=== PATIENT | female | born 1965 | race Caucasian/White ===

== ENCOUNTER 2018-12-15 07:53 | Inpatient (IN) | payer MEDICAID, OTHER ==
[~2018-12-15] VITALS: Ht 160 cm; Wt 103.5 kg
[2018-12-15] MEDS ORDERED: SODIUM CHLORIDE 0.9% 1L BAG IV* STA (07:57)
[2018-12-15] MEDS ORDERED: CEFTRIAXONE 1 GM/50 ML (PMX) 50 ML IVPB ONE (08:00)
[2018-12-15] MEDS ORDERED: LORAZEPAM 0.5 MG TAB PO ONE (08:00)
[2018-12-15] MEDS ORDERED: IBUPROFEN 600 MG TAB PO ONE (08:00)
--- NOTE | 2018-12-15 08:15 | ERD ---
ER Documentation Chief Complaint Chief Complaint C/O HAND PAIN BUT ALSO SOB, FEBRILE, HYPERTENSIVE HPI 53-year-old woman brought in by EMS from home for anxiety, tactile fever, shortness of breath, and hypertension. Patient states she has been having multiple arguments with her boyfriend, and states she has been feeling very anxious for the last 3 days and his morning she developed carpal spasms. She states she has had a fever for 3 days and admits to mild cough but denies abdominal pain. Patient denies vomiting or diarrhea, no blood per rectum or melena. She drinks alcohol daily and admits to being a mild alcoholic but s tates she has not drank alcohol for the last 3 days. Patient denies history of drug abuse, no suicidal homicidal ideation, no complaints of chest pain. Patient transported here by EMS tachypnea, anxious, febrile. ROS All systems reviewed and are negative except as per history of present illness. Allergies Allergies: Coded Allergies: No Known Allergy (Unverified , 12/15/18) PMhx/Soc Obesity, alcoholism FmHx Family History: No diabetes Physical Exam Vitals Vital Signs Date Temp Pulse Resp B/P (MAP) Pulse Ox O2 O2 Flow FiO2 Time Delivery Rate 12/15/18 101.0 109 28 178/83 97 Nasal 08:45 (114) Cannula 12/15/18 101.0 08:34 12/15/18 2.0 08:00 12/15/18 101.2 114 24 181/90 92 07:55 (120) Physical Exam GENERAL: Well-developed, well-nourished, appears dehydrated, febrile, anxious HEENT: Dry mucous membranes, pink conjunctiva, no cervical spine tenderness or step-off deformities, no goiter, no jaundice or icterus, extraocular movements intact without pain. NEURO: Alert and oriented 3, cranial nerves II through XII intact bilaterally, pupils equal round reactive to light CARDIAC: Tachycardic and regular, no murmurs rubs or gallops LUNGS: Clear bilaterally no wheezing crackles or stridor ABDOMEN: Soft distended, protuberant abdomen, no rigidity, nontender SKIN: Warm and dry to touch, no abrasions, contusions, or hematomas, no lacerations, no ecchymosis, no target lesions, and without ulcers EXTREMITIES: No clubbing cyanosis, 2+ pitting edema in the lower extremities bilaterally, calves are bilaterally symmetrical, no Homans sign, no popliteal cord sign. Distal pulses equal and bilateral PSYCH: Anxious with carpal spasms bilaterally Result Diagram: 12/15/18 0810 12/15/18 0810 Results 24 hrs Laboratory Tests Test 12/15/18 08:03 12/15/18 08:10 12/15/18 08:55 POC Venous Lactate 2.9 mmol/L White Blood Count 8.0 10^3/ul Red Blood Count 4.26 10^6/ul Hemoglobin 10.2 g/dl Hematocrit 34.7 % Mean Corpuscular Volume 81.5 fl Mean Corpuscular Hemoglobin 23.9 pg Mean Corpuscular 29.4 g/dl Hemoglobin Concent Red Cell Distribution Width 16.8 % Platelet Count 65 10^3/UL Mean Platelet Volume 12.4 fl Immature Granulocytes % 0.500 % Neutrophils % 81.5 % Lymphocytes % 10.3 % Monocytes % 7.3 % Eosinophils % 0.1 % Basophils % 0.3 % Nucleated Red Blood Cells % 0.3 /100WBC Immature Granulocytes # 0.040 10^3/ul Neutrophils # 6.5 10^3/ul Lymphocytes # 0.8 10^3/ul Monocytes # 0.6 10^3/ul Eosinophils # 0.0 10^3/ul Basophils # 0.0 10^3/ul Nucleated Red Blood Cells # 0.0 10^3/ul Prothrombin Time 18.6 Sec Prothrombin Time Ratio 1.5 INR International 1.54 Normalized Ratio Activated Partial Thromboplast 33.7 Sec Time Sodium Level 140 mmol/L Potassium Level 2.4 mmol/L Chloride Level 95 mmol/L Carbon Dioxide Level 34 mmol/L Anion Gap 11 Blood Urea Nitrogen 11 mg/dl Creatinine 0.90 mg/dl Est Glomerular Filtrat > 60 mL/min Rate mL/min Glucose Level 116 mg/dl Calcium Level 7.3 mg/dl Total Bilirubin 1.1 mg/dl Direct Bilirubin 0.00 mg/dl Indirect Bilirubin 1.1 mg/dl Aspartate Amino 73 IU/L Transf (AST/SGOT) Alanine 56 IU/L Aminotransferase (ALT/SGPT) Alkaline Phosphatase 73 IU/L Troponin I 0.138 ng/ml C-Reactive Protein 2.5 mg/dl Total Protein 7.6 g/dl Albumin 3.2 g/dl Globulin 4.40 g/dl Albumin/Globulin Ratio 0.72 Lipase 149 U/L Urine Color PEDRO Urine Clarity CLOUDY Urine pH 7.0 Urine Specific [place] 1.012 Urine Ketones NEGATIVE mg/dL Urine Nitrite POSITIVE mg/dL Urine Bilirubin NEGATIVE mg/dL Urine Urobilinogen NEGATIVE mg/dL Urine Leukocyte Esterase 3+ Enrique/ul Urine Microscopic RBC 3 /HPF Urine Microscopic WBC > 182 /HPF Urine Squamous Epithelial Cells FEW /HPF Urine Bacteria FEW /HPF Urine Hemoglobin 2+ mg/dL Urine Glucose NEGATIVE mg/dL Urine Total Protein 1+ mg/dl Current Medications Medications Dose Sig/Darryl Start Time Status Last (Trade) Ordered Route PRN Stop Time Admin Dose Reason Admin Sodium 3,000 ml BOLUS OVER 2 12/15/18 DC 12/15/18 Chloride HOURS STAT 07:57 08:35 (NS) IV* 12/15/18 08:01 Ceftriaxone 50 ml @ ONCE ONCE 12/15/18 DC 12/15/18 Sodium 100 mls/hr IVPB 08:00 08:34 12/15/18 08:29 Ibuprofen 600 mg ONCE ONCE 12/15/18 DC 12/15/18 (Motrin) PO 08:00 08:34 12/15/18 08:01 Lorazepam 1 mg ONCE ONCE 12/15/18 DC 12/15/18 (Ativan) PO 08:00 08:34 12/15/18 08:01 Furosemide 40 mg ONCE ONCE 12/15/18 DC (Lasix) IV 09:00 12/15/18 09:01 Magnesium 50 ml @ 25 ONCE ONCE 12/15/18 Sulfate mls/hr IVPB 09:30 12/15/18 11:29 Potassium 260 ml @ ONCE ONCE 12/15/18 Phosphate 30 65 mls/hr IVPB 09:30 mm/ Sodium 12/15/18 13:29 Chloride Procedures/MDM IV line was established patient was placed on clinical research monitor rhythm strip revealed a sinus tachycardia at 100 bpm with upright P and T waves. Patient was febrile, blood and urine cultures have been ordered results are pending I will follow-up. EKG performed, read by me revealed sinus tachycardia at 106 bpm, normal axis, narrow QRS complex, no concerning ST elevations or depressions noted I administered 3 L normal saline IV for I administered 3 L normal saline IV, ibuprofen 600 mg p.o. for fever, lorazepam 1 mg p.o. for anxiety, ceftriaxone 1 g IV One AP view of the chest performed, read by me reveals cardiomegaly and congestion bilaterally, no acute infiltrates, no pneumothorax. CT scan of the abdomen and pelvis was performed, IMPRESSION: 1. Mild ascites. 2. Cirrhotic liver with recanalization of the umbilical vein and varices consistent with portal hypertension. 3. Splenomegaly. 4. Sludge within the gallbladder. 5. Punctate nonobstructing bilateral renal calculi. 6. Mild diffuse rectal thickening. This may represent a proctitis. 7. Mild degenerative changes thoracic spine. CBC is unremarkable, electrolytes reveal hypokalemia 2.4, liver function tests were normal, troponin positive at 0.1, lactic acid elevated 2.9, flu swabs negative, urinalysis positive for infection. I administered IV potassium supplementation, magnesium 2 g IV, and initiated BiPAP therapy due to tachycardia and dyspnea although oxygen saturation was 100%. I do suspect mild congestion bilaterally although given her sepsis and hypokalemia Lasix was held. Fluids given as a drip Patient's infectious symptoms have not stabilized and the patient is at risk of rapid decompensation. The patient will be admitted for careful hydration, antibiotic therapy, and infectious source control. SEVERE SEPSIS CRITERIA: Infectious source: Urinary tract infection End organ damage indicated by: None SEPSIS MANAGEMENT Time of recognition of sepsis: Upon arrival. Time of recognition of severe sepsis: No severe sepsis at this time. Time of recognition of septic shock: No septic shock at this time. 3 HOUR BUNDLE Blood cultures x 2 before broad-spectrum antibiotics: Yes 30 ml/kg NS bolus completed Initial lactate 2.9 Repeat lactate pending SEPTIC SHOCK ASSESSMENT: No lactic acid > 4.0 No persistent hypotension (SBP < 90 or 40 mmHg drop, MAP < 65) despite 30 mL/kg IV fluid bolus VOLUME REASSESSMENT FOR SEPTIC SHOCK: Reevaluation Time: 9:30 AM Temp 99 F, BP 160/80, heart rate 100 bpm, respiratory rate 20 breaths/min, oxygen saturation 100%, BP, HR, RR, Pox Heart tachycardic and regular Lungs no crackles Skin warm & dry Cap Refill less than 2 seconds Peripheral pulses radially present PERSISTENT HYPOTENSION TREATMENT: Comfort care no Central line not Required Vasopressor started not required I considered further perfusion assessment with CVP measurement, SCVO2, bedside ultrasound volume assessment, passive leg raise, trial of further fluid bolus. And proceeded with 30 ml/kg fluid bolus of NSS, broad spectrum antibiotics, and admission. CRITICAL CARE: Critical care time 45 minutes, this was time separate from other billable procedures. Emergent fluid management while maintaining close respiratory support. Provision of immediate and broad-spectrum antibiotic therapy. Simultaneous assessment for possible sources in order to direct targeted therapy. Consideration for invasive and chemical support to prevent cardiopulmonary collapse. Critical care time is independent of procedures performed. Accepting Care Team: Current data and ongoing care discussed. Time: Time of admission Primary Provider: Hospitalist Consulting: Infectious disease, cardiology Outstanding Data: none Departure Diagnosis: Primary Impression: CHF (congestive heart failure) Heart failure type: combined systolic and diastolic Heart failure chronicity: acute Qualified Codes: I50.41 - Acute combined systolic (congestive) and diastolic (congestive) heart failure Additional Impressions: Ascites Ascites type: due to alcoholic cirrhosis Qualified Codes: K70.31 - Alcoholic cirrhosis of liver with ascites Sepsis Sepsis type: sepsis due to unspecified organism Qualified Codes: A41.9 - Sepsis, unspecified organism Acute UTI Acute hypokalemia Condition: Serious MILY OHARA MD Dec 15, 2018 08:15
[2018-12-15] MEDS ORDERED: FUROSEMIDE 40 MG INJ IV ONE (09:00)
[2018-12-15] MEDS ORDERED: POTASSIUM PHOSPHATE 30 MM in SOD CHLORIDE 0.9% 250 ML IVPB ONE (09:30)
[2018-12-15] MEDS ORDERED: MAGNESIUM SULFATE 2 GM/50 ML 50 ML IVPB ONE (09:30)
[2018-12-15] MEDS ORDERED: LISI10TA2 PO (09:51)
[2018-12-15 15:52] VITALS: PULSE 122
[2018-12-15 16:00] VITALS: PULSE 124
[2018-12-15 16:20] VITALS: Ht 160 cm; Wt 103.5 kg
[2018-12-15 16:26] VITALS: BP 156/72; PULSE 88; RESP 20
[2018-12-15] MEDS: FOLIC ACID 1 MG TAB PO SCH (17:15)
[2018-12-15] MEDS: THIAMINE 100 MG TAB PO SCH (17:15)
[2018-12-15] MEDS: MULTIVITAMINS THERAPEUTIC TAB PO SCH (17:15)
[2018-12-15] MEDS: SOD CHLORIDE 0.9% 1,000 ML IV SCH ×2 (17:16→21:25)
[2018-12-15] MEDS ORDERED: MULTIVITAMINS 10 ML, FOLIC ACID 1 MG in SOD CHLORIDE 0.9% 1,000 ML IVPB SCH (18:00)
[2018-12-15 19:40] VITALS: BP 148/71; PULSE 103; RESP 17
[2018-12-15 20:00] VITALS: PULSE 105
--- NOTE | 2018-12-15 21:00 | NUR ---
Dr. Oliveros notified K level 2.5 with new order & carried out.
[2018-12-15] MEDS: FAMOTIDINE 20 MG TAB PO SCH (21:25)
[2018-12-15] MEDS: DOCUSATE SODIUM 100 MG CAP PO SCH (21:25)
[2018-12-15] MEDS: CHLORDIAZEPOXIDE 25 MG CAP PO SCH (21:25)
[2018-12-15] MEDS ORDERED: MAGNESIUM SULFATE 1 GM/D5W 100 ML IVPB ONE (21:30)
[2018-12-15] MEDS: ACETAMINOPHEN 325 MG TAB PO PRN (22:15)
[2018-12-15 23:40] VITALS: BP 141/73; PULSE 101; RESP 18
[2018-12-16] VITALS (12 sets, daily range): BP systolic 144–176; BP diastolic 74–96; PULSE 73–106; RESP 17–20
[2018-12-16] MEDS ORDERED: POTASSIUM CHLORIDE (SR) 20 MEQ TAB PO ONE (06:24)
[2018-12-16] MEDS ORDERED: MAGNESIUM SULFATE 1 GM/D5W 100 ML IVPB ONE (07:00)
[2018-12-16] MEDS ORDERED: CA CHLORIDE 10% 10 ML SYRINGE IV ONE (07:30)
[2018-12-16] MEDS ORDERED: CALCIUM CHLORIDE IV SCH (07:30)
[2018-12-16] MEDS ORDERED: SOD CHLORIDE 0.9% IV SCH (07:30)
[2018-12-16] MEDS ORDERED: metroNIDAZOLE 500 MG/NS (PMX) 100 ML IVPB SCH (07:30)
--- NOTE | 2018-12-16 08:10 | HP ---
DATE OF ADMISSION: 12/15/2018 TIME OF EVALUATION: At about 4:00 p.m. PRESENTING COMPLAINTS: Shortness of breath and hand pain as well as anxiety. HISTORY OF PRESENTING COMPLAINT: Ms. Inge Oconnor is a 53-year-old female who was reportedly brought in by EMS from home because of hand pain, anxiety and fever. The patient is an alcoholic and drinks al cohol daily. At this time, she has been given anti-anxiety medications and is an extremely poor hist orian. I am unable to really piece together any significant history. However, she was found to be s eptic on arrival and hypokalemic, and her troponin level has come back elevated. She has been admitt ed for further workup and management. PAST MEDICAL HISTORY: 1. Hypertension. 2. Obesity. 3. Alcoholism. PAST SURGICAL HISTORY: The patient denies. ALLERGIES: SHE HAS NO KNOWN DRUG ALLERGIES. SOCIAL HISTORY: Alcoholic. Tobacco user. Denies illicit drug use. FAMILY HISTORY: Unknown. REVIEW OF SYSTEMS: Pertinent findings essentially as noted in the HPI, which was basically a poor at tempt due to the patient's clinical status. HOME MEDICATIONS: Have been reviewed and reconciled. PHYSICAL EXAMINATION: VITAL SIGNS: Temperature 99.4, heart rate is 98, respirations 20, blood pressure 100% on 3 liters ox ygen nasal cannula. GENERAL: Showed obese female who is quite lethargic and in mild respiratory distress. HEENT: Her head is normocephalic. Pupils equal and reactive. There is mild conjunctival pallor, bu t no scleral icterus. NECK: Supple. CHEST: With diminished breath sounds. No crackles or wheezes. CARDIOVASCULAR: Heart sounds S1 and S2, occasional tachycardia, no murmurs. ABDOMEN: Obese, soft, does not seem tender. SKIN: Devoid of rash or jaundice. EXTREMITIES: Lower extremity, the patient does have bilateral edema. LABORATORY VALUES: Potassium 2.4. The point of care lactase was 2.9. Troponin 0.13. Lipase is nor mal. AST 73, ALT is 56, alkaline phosphatase is 73. Hematology: She does have hypochromic and micr ocytic indices and a thrombocytopenia. Coagulation profile: INR is mildly high at 1.5. Urinalysis is nitrite positive with greater than 182 white cells. IMAGING: CT of the abdomen and pelvis shows mild ascites, liver cirrhosis and portal hypertension, s plenomegaly, nonobstructing bilateral renal calculi, possible proctitis. A chest x-ray showed mild c ardiomegaly with trace edema. EKG showed sinus tachycardia, no ST elevation. ASSESSMENT: A 53-year-old morbidly obese female who presents to the emergency room with nonspecific symptoms of anxiety, history of alcoholism and liver cirrhosis, admitted and managed for the followin . Sepsis secondary to urinary tract infection. 2. Elevated troponin, rule out [id number] elevation myocardial infarction type 2. 3. Rule out congestive heart failure. 4. Hypokalemia. 5. Chronic hypochromic microcytic anemia. 6. Chronic cirrhosis associated with portal hypertension, coagulopathy and thrombocytopenia. 7. Incidental finding of possible proctitis. 8. Alcohol withdrawal. 9. Mild respiratory insufficiency, rule out congestive heart failure. PLAN: Admit to telemetry floor, complete ACS rule out, empiric antibiotic, blood cultures and urine cultures. We will also get cardiology consultation. Continue aspirin and statin for now. Also add propranolol therapy for portal hypertension as tolerated. I am going to give some fluids for now, bu t patient may actually require diuresis. The patient did get 1 dose of Lasix in the emergency room. Start Librium and vitamin supplementation to help avoid withdrawal symptoms, and continue close angel toring, and further interventions will depend on her clinical course. Dictated By: DELMAR HANNA MD BA/NTS Conf#: [id number] DID#: [id number] CC: DELMAR HANNA MD;*EndCC*
[2018-12-16] MEDS: CEFTRIAXONE 1 GM/50 ML (PMX) 50 ML IVPB SCH (08:22)
[2018-12-16] MEDS: ACETAMINOPHEN 325 MG TAB PO PRN (08:28)
[2018-12-16] MEDS: POTASSIUM CHLORIDE (SR) 20 MEQ TAB PO SCH (08:29)
[2018-12-16] MEDS: DOCUSATE SODIUM 100 MG CAP PO SCH ×2 (08:29→20:15)
[2018-12-16] MEDS: MULTIVITAMINS THERAPEUTIC TAB PO SCH (08:29)
[2018-12-16] MEDS: FAMOTIDINE 20 MG TAB PO SCH ×2 (08:29→20:16)
[2018-12-16] MEDS: CHLORDIAZEPOXIDE 25 MG CAP PO SCH (08:30)
[2018-12-16] MEDS: FOLIC ACID 1 MG TAB PO SCH (08:30)
[2018-12-16] MEDS: ASPIRIN (EC) 81 MG TAB PO SCH (08:30)
[2018-12-16] MEDS: THIAMINE 100 MG TAB PO SCH (08:30)
--- NOTE | 2018-12-16 08:53 | CONS ---
Assessment/Plan Assessment/Plan Assessment/Plan (Daily) Urosepsis Fasle+trop due to ckd Possible very midl CHF Hypokalemia Azotemia Cirrhosis Etoh withdrawal -d/c lasix as no clincal chf at this time, marin insuff, etoh withdrawal -rx potassiium -probably flase+trops due to renal insuff -abx -echo orderred Consultation Date/Type/Reason Admit Date/Time Dec 15, 2018 at 09:01 Type of Consult Cardiology Date/Time of Note DATE: 12/16/18 TIME: 08:49 Hx of Present Illness Ms. Inge Oconnor is a 53-year-old female who was reportedly brought in by EMS from home because of hand pain, anxiety and fever. The patient is an alcoholic and drinks alcohol daily. At this time, she has been given anti-anxiety medications and is an extremely poor historian. I am unable to really piece together any significant history. However, she was found to be septic on arrival and hypokalemic, and her troponin level has come back elevated. She has been admitted for further workup and management. The patient with no cardiac hx with no chst pain and some sob but found to have an elevated trop and asked to see aureliano in cardiac consultaition Past Medical History Home Meds Reported Medications Lisinopril* (Lisinopril*) 10 Mg Tablet, 10 MG PO DAILY, #30 TAB 12/15/18 Medications Current Medications Aspirin (Halfprin) 81 mg DAILY PO Last administered on 12/16/18at 08:30; Admin Dose 81 MG; Start 12/16/18 at 09:00 Docusate Sodium (Colace) 100 mg BID PO Last administered on 12/16/18at 08:29; A dmin Dose 100 MG; Start 12/15/18 at 21:00 Famotidine (Pepcid) 20 mg BID PO Last administered on 12/16/18 08:29; Admin Dose 20 MG; Start 12/15/18 at 21:00 Chlordiazepoxide (Librium) 25 mg TID PO Last administered on 12/16/18at 08:30; Admin Dose 25 MG; Start 12/15/18 at 21:00; Stop 12/17/18 at 20:59 Multivitamins Therapeutic (Theragran) 1 tab DAILY PO Last administered on 12/16/18at 08:29; Admin Dose 1 TAB; Start 12/15/18 at 17:00 Thiamine HCl (Vitamin B1) 100 mg DAILY PO Last administered on 12/16/18 08:30; Admin Dose 100 MG; Start 12/15/18 at 17:00 Folic Acid (Folic Acid) 1 mg DAILY PO Last administered on 12/16/18 08:30; Admin Dose 1 MG; Start 12/15/18 at 17:00 Influenza Virus Vaccine Quadrival (Fluzone) 0.5 ml ONCE ONCE IM* ; Start 12/16/18 at 11:00; Stop 12/16/18 at 11:01 Potassium Chloride (Klor-Con 20) 20 meq DAILY PO Last administered on 12/16/18 08:29; Admin Dose 20 MEQ; Start 12/16/18 at 09:00; Stop 12/18/18 at 09:01 Acetaminophen (Tylenol Tab) 650 mg Q6H PRN PO MILD PAIN(1-3)OR ELEVATED TEMP Last administered on 12/16/18at 08:28; Admin Dose 650 MG; Start 12/15/18 at 22:00 Furosemide (Lasix) 20 mg BID DIURETICS IV Last administered on 12/16/18at 08:37; Admin Dose 20 MG; Start 12/16/18 at 09:00; Stop 12/17/18 at 06:01 Atorvastatin Calcium (Lipitor) 20 mg HS PO ; Start 12/16/18 at 21:00 Ceftriaxone Sodium 50 ml @ 100 mls/hr Q24H IVPB Last administered on 12/16/18at 08:22; Admin Dose 100 MLS/HR; Start 12/16/18 at 07:30 Calcium Chloride 2 gm/Sodium Chloride 120 ml @ 60 mls/hr ONCE IV ; Start 12/16/18 at 07:30; Stop 12/16/18 at 12:00 Metronidazole 100 ml @ 100 mls/hr Q8 IVPB ; Start 12/16/18 at 10:00 Allergies: Coded Allergies: No Known Allergy (Unverified , 12/15/18) Social History Smoking Status: Current every day smoker Exam/Review of Systems Vital Signs Vitals Vital Signs Date Temp Pulse Resp B/P (MAP) Pulse Ox O2 O2 Flow FiO2 Time Delivery Rate 12/16/18 98.0 77 18 146/84 95 07:45 (104) 12/16/18 3.0 06:30 12/15/18 Nasal 20:00 Cannula 12/15/18 32 16:23 Intake and Output 12/15/18 12/15/18 12/16/18 1515:00 23:00 07:00 IntakeIntake Total 1600 ml 700 ml 200 ml OutputOutput Total 600 ml 500 ml BalanceBalance 1600 ml 100 ml -300 ml Labs Result Diagram: 12/16/18 0511 12/16/18 0511 Results 24hrs Laboratory Tests Test 12/15/18 08:55 12/15/18 09:59 12/15/18 17:13 12/15/18 23:10 Urine Color PEDRO Urine Clarity CLOUDY A Urine pH 7.0 Urine Specific 1.012 [place] Urine Ketones NEGATIVE Urine Nitrite POSITIVE A Urine Bilirubin NEGATIVE Urine Urobilinogen NEGATIVE Urine Leukocyte 3+ H Esterase Urine Microscopic 3 RBC Urine Microscopic > 182 H WBC Urine Squamous FEW Epithelial Cells Urine Bacteria FEW A Urine Hemoglobin 2+ H Urine Glucose NEGATIVE Urine Total Protein 1+ H POC Venous Lactate 2.0 Sodium Level 140 Potassium Level 2.5 *L Chloride Level 98 Carbon Dioxide Level 33 H Anion Gap 9 Blood Urea Nitrogen 17 Creatinine 1.12 H Est Glomerular 51 L Filtrat Rate mL/min Glucose Level 105 Calcium Level 6.7 L Creatine Kinase 187 201 H Creatine Kinase 0.8 0.8 Index Creatinine Kinase MB 1.45 1.59 (Mass) Troponin I 0.096 0.081 Test 12/16/18 05:10 12/16/18 05:11 Iron Level 47 Total Iron Binding 397 Capacity Percent Iron 12 L Saturation B-Type Natriuretic 226 H Peptide White Blood Count 6.4 Red Blood Count 3.75 L Hemoglobin 9.2 L Hematocrit 30.5 L Mean Corpuscular 81.3 L Volume Mean Corpuscular 24.5 L Hemoglobin Mean Corpuscular 30.2 L Hemoglobin Concent Red Cell 16.9 H Distribution Width Platelet Count 53 L Mean Platelet Volume 12.3 H Immature 0.300 Granulocytes % Neutrophils % 72.2 Lymphocytes % 15.2 Monocytes % 8.7 Eosinophils % 3.1 Basophils % 0.5 Nucleated Red Blood 0.0 Cells % Immature 0.020 Granulocytes # Neutrophils # 4.6 Lymphocytes # 1.0 Monocytes # 0.6 Eosinophils # 0.2 Basophils # 0.0 Nucleated Red Blood 0.0 Cells # Sodium Level 139 Potassium Level 2.4 *L Chloride Level 97 Carbon Dioxide Level 32 H Anion Gap 10 Blood Urea Nitrogen 19 Creatinine 1.21 H Est Glomerular 47 L Filtrat Rate mL/min Glucose Level 94 Lactic Acid Level 1.4 Calcium Level 6.6 L Magnesium Level 1.9 Total Bilirubin 0.8 Direct Bilirubin 0.00 Indirect Bilirubin 0.8 Aspartate Amino 54 H Transf (AST/SGOT) Alanine 54 Aminotransferase (AL T/SGPT) Alkaline Phosphatase 67 Total Protein 6.5 # Albumin 2.7 L Globulin 3.80 H Albumin/Globulin 0.71 Ratio Medications Medications Current Medications Aspirin (Halfprin) 81 mg DAILY PO Last administered on 12/16/18 08:30; Admin Dose 81 MG; Start 12/16/18 at 09:00 Docusate Sodium (Colace) 100 mg BID PO Last administered on 12/16/18 08:29; Admin Dose 100 MG; Start 12/15/18 at 21:00 Famotidine (Pepcid) 20 mg BID PO Last administered on 12/16/18 08:29; Admin Dose 20 MG; Start 12/15/18 at 21:00 Chlordiazepoxide (Librium) 25 mg TID PO Last administered on 12/16/18 08:30; Admin Dose 25 MG; Start 12/15/18 at 21:00; Stop 12/17/18 at 20:59 Multivitamins Therapeutic (Theragran) 1 tab DAILY PO Last administered on 12/16/18 08:29; Admin Dose 1 TAB; Start 12/15/18 at 17:00 Thiamine HCl (Vitamin B1) 100 mg DAILY PO Last administered on 12/16/18 08:30; Admin Dose 100 MG; Start 12/15/18 at 17:00 Folic Acid (Folic Acid) 1 mg DAILY PO Last administered on 12/16/18 08:30; Admin Dose 1 MG; Start 12/15/18 at 17:00 Influenza Virus Vaccine Quadrival (Fluzone) 0.5 ml ONCE ONCE IM* ; Start 12/16/18 at 11:00; Stop 12/16/18 at 11:01 Potassium Chloride (Klor-Con 20) 20 meq DAILY PO Last administered on 12/16/18 08:29; Admin Dose 20 MEQ; Start 12/16/18 at 09:00; Stop 12/18/18 at 09:01 Acetaminophen (Tylenol Tab) 650 mg Q6H PRN PO MILD PAIN(1-3)OR ELEVATED TEMP Last administered on 12/16/18at 08:28; Admin Dose 650 MG; Start 12/15/18 at 22:00 Furosemide (Lasix) 20 mg BID DIURETICS IV Last administered on 12/16/18at 08:37; Admin Dose 20 MG; Start 12/16/18 at 09:00; Stop 12/17/18 at 06:01 Atorvastatin Calcium (Lipitor) 20 mg HS PO ; Start 12/16/18 at 21:00 Ceftriaxone Sodium 50 ml @ 100 mls/hr Q24H IVPB Last administered on 12/16/18at 08:22; Admin Dose 100 MLS/HR; Start 12/16/18 at 07:30 Calcium Chloride 2 gm/Sodium Chloride 120 ml @ 60 mls/hr ONCE IV ; Start 12/16/18 at 07:30; Stop 12/16/18 at 12:00 Metronidazole 100 ml @ 100 mls/hr Q8 IVPB ; Start 12/16/18 at 10:00 JOVANNI CAIN MD Dec 16, 2018 08:53
[2018-12-16] MEDS ORDERED: FUROSEMIDE 20 MG INJ IV SCH (09:00)
[2018-12-16] MEDS: metroNIDAZOLE 500 MG/NS (PMX) 100 ML IVPB SCH ×3 (11:22→21:39)
--- NOTE | 2018-12-16 15:37 | PN ---
Date/Time of Note Date/Time of Note DATE: 12/16/18 TIME: 15:32 Assessment/Plan VTE Prophylaxis Risk score (from [facility])>0 risk: 1 SCD applied (from [facility]): No SCD contraindicated: other (no) Pharmacological prophylaxis: NA/contraindicated Pharm contraindication: thrombocytopenia Lines/Catheters IV Catheter Type (from [facility]): Peripheral IV Urinary Cath still in place: No Assessment/Plan Assessment/Plan 53-year-old morbidly obese woman who presents to the emergency room with nonspecific symptoms of anxiety, history of alcoholism and liver cirrhosis #Alcohol withdrawal - Last drink about 48 hours ago - Patient not showing any withdrawal symptoms, no Ativan required. - Will stop Librium and monitor overnight, if no withdrawal symptoms will d ischarge. #Cirrhosis - Per labs (thrombocytopenia, INR 1.5, low albumin) and imaging (CT with nodular liver surface) - Today the patient seemed unaware of her diagnosis. - I explained the importance of complete cessation from alcohol. #UTI - Dysuria, bacteruria. - Urine growing gram negative rods, will f/u final culture - Continue ceftriaxone. #Elevated troponin - Dr. Pulido consulted. Likely due to CKD. No NSTEMI. No further workup. Result Diagram: 12/16/18 0511 12/16/18 0511 Results 24hrs Laboratory Tests Test 12/15/18 17:13 12/15/18 23:10 12/16/18 05:10 12/16/18 05:11 Sodium Level 140 139 Potassium Level 2.5 *L 2.4 *L Chloride Level 98 97 Carbon Dioxide Level 33 H 32 H Anion Gap 9 10 Blood Urea Nitrogen 17 19 Creatinine 1.12 H 1.21 H Est Glomerular 51 L 47 L Filtrat Rate mL/min Glucose Level 105 94 Calcium Level 6.7 L 6.6 L Creatine Kinase 187 201 H Creatine Kinase 0.8 0.8 Index Creatinine Kinase MB 1.45 1.59 (Mass) Troponin I 0.096 0.081 Iron Level 47 Total Iron Binding 397 Capacity Percent Iron 12 L Saturation B-Type Natriuretic 226 H Peptide White Blood Count 6.4 Red Blood Count 3.75 L Hemoglobin 9.2 L Hematocrit 30.5 L Mean Corpuscular 81.3 L Volume Mean Corpuscular 24.5 L Hemoglobin Mean Corpuscular 30.2 L Hemoglobin Concent Red Cell 16.9 H Distribution Width Platelet Count 53 L Mean Platelet Volume 12.3 H Immature 0.300 Granulocytes % Neutrophils % 72.2 Lymphocytes % 15.2 Monocytes % 8.7 Eosinophils % 3.1 Basophils % 0.5 Nucleated Red Blood 0.0 Cells % Immature 0.020 Granulocytes # Neutrophils # 4.6 Lymphocytes # 1.0 Monocytes # 0.6 Eosinophils # 0.2 Basophils # 0.0 Nucleated Red Blood 0.0 Cells # Lactic Acid Level 1.4 Magnesium Level 1.9 Total Bilirubin 0.8 Direct Bilirubin 0.00 Indirect Bilirubin 0.8 Aspartate Amino 54 H Transf (AST/SGOT) Alanine 54 Aminotransferase (AL T/SGPT) Alkaline Phosphatase 67 Total Protein 6.5 # Albumin 2.7 L Globulin 3.80 H Albumin/Globulin 0.71 Ratio Subjective 24 Hr Interval Summary Free Text/Dictation No acute overnight events. Patient is sitting comfortably in no distress, tolerating diet, ambulating. Exam/Review of Systems Exam Vitals Vital Signs Date Temp Pulse Resp B/P (MAP) Pulse Ox O2 O2 Flow FiO2 Time Delivery Rate 12/16/18 97.8 94 18 154/89 96 15:20 (110) 12/16/18 Nasal 2.0 08:00 Cannula 12/15/18 32 16:23 Intake and Output 12/15/18 12/15/18 12/16/18 1515:00 23:00 07:00 IntakeIntake Total 1600 ml 700 ml 200 ml OutputOutput Total 600 ml 500 ml BalanceBalance 1600 ml 100 ml -300 ml Exam GENERAL: Obese woman awake and alert in no distress. HEENT: Her head is normocephalic. Pupils equal and reactive. There is mild conjunctival pallor, but no scleral icterus. NECK: Supple. CHEST: With diminished breath sounds. No crackles or wheezes. CARDIOVASCULAR: Heart sounds S1 and S2, occasional tachycardia, no murmurs. ABDOMEN: Obese, soft, does not seem tender. SKIN: Devoid of rash or jaundice. EXTREMITIES: Trace bilateral LE nonpitting edema. Results Results 24hrs Laboratory Tests Test 12/15/18 17:13 12/15/18 23:10 12/16/18 05:10 12/16/18 05:11 Sodium Level 140 139 Potassium Level 2.5 *L 2.4 *L Chloride Level 98 97 Carbon Dioxide Level 33 H 32 H Anion Gap 9 10 Blood Urea Nitrogen 17 19 Creatinine 1.12 H 1.21 H Est Glomerular 51 L 47 L Filtrat Rate mL/min Glucose Level 105 94 Calcium Level 6.7 L 6.6 L Creatine Kinase 187 201 H Creatine Kinase 0.8 0.8 Index Creatinine Kinase MB 1.45 1.59 (Mass) Troponin I 0.096 0.081 Iron Level 47 Total Iron Binding 397 Capacity Percent Iron 12 L Saturation B-Type Natriuretic 226 H Peptide White Blood Count 6.4 Red Blood Count 3.75 L Hemoglobin 9.2 L Hematocrit 30.5 L Mean Corpuscular 81.3 L Volume Mean Corpuscular 24.5 L Hemoglobin Mean Corpuscular 30.2 L Hemoglobin Concent Red Cell 16.9 H Distribution Width Platelet Count 53 L Mean Platelet Volume 12.3 H Immature 0.300 Granulocytes % Neutrophils % 72.2 Lymphocytes % 15.2 Monocytes % 8.7 Eosinophils % 3.1 Basophils % 0.5 Nucleated Red Blood 0.0 Cells % Immature 0.020 Granulocytes # Neutrophils # 4.6 Lymphocytes # 1.0 Monocytes # 0.6 Eosinophils # 0.2 Basophils # 0.0 Nucleated Red Blood 0.0 Cells # Lactic Acid Level 1.4 Magnesium Level 1.9 Total Bilirubin 0.8 Direct Bilirubin 0.00 Indirect Bilirubin 0.8 Aspartate Amino 54 H Transf (AST/SGOT) Alanine 54 Aminotransferase (AL T/SGPT) Alkaline Phosphatase 67 Total Protein 6.5 # Albumin 2.7 L Globulin 3.80 H Albumin/Globulin 0.71 Ratio Medications Medication Current Medications Aspirin (Halfprin) 81 mg DAILY PO Last administered on 12/16/18 08:30; Admin Dose 81 MG; Start 12/16/18 at 09:00 Docusate Sodium (Colace) 100 mg BID PO Last administered on 12/16/18 08:29; Admin Dose 100 MG; Start 12/15/18 at 21:00 Famotidine (Pepcid) 20 mg BID PO Last administered on 12/16/18 08:29; Admin Dose 20 MG; Start 12/15/18 at 21:00 Multivitamins Therapeutic (Theragran) 1 tab DAILY PO Last administered on 12/16/18 08:29; Admin Dose 1 TAB; Start 12/15/18 at 17:00 Thiamine HCl (Vitamin B1) 100 mg DAILY PO Last administered on 1/26/19at 08:30; Admin Dose 100 MG; Start 12/15/18 at 17:00 Folic Acid (Folic Acid) 1 mg DAILY PO Last administered on 12/16/18 08:30; Admin Dose 1 MG; Start 12/15/18 at 17:00 Potassium Chloride (Klor-Con 20) 20 meq DAILY PO Last administered on 12/16/18 08:29; Admin Dose 20 MEQ; Start 12/16/18 at 09:00; Stop 12/18/18 at 09:01 Acetaminophen (Tylenol Tab) 650 mg Q6H PRN PO MILD PAIN(1-3)OR ELEVATED TEMP Last administered on 12/16/18 08:28; Admin Dose 650 MG; Start 12/15/18 at 22:00 Atorvastatin Calcium (Lipitor) 20 mg HS PO ; Start 12/16/18 at 21:00 Ceftriaxone Sodium 50 ml @ 100 mls/hr Q24H IVPB Last administered on 12/16/18 08:22; Admin Dose 100 MLS/HR; Start 12/16/18 at 07:30 Metronidazole 100 ml @ 100 mls/hr Q8 IVPB Last administered on 12/16/18at 11:22; Admin Dose 100 MLS/HR; Start 12/16/18 at 10:00 BOSSMAN RIVERA MD Dec 16, 2018 15:37
--- NOTE | 2018-12-16 17:45 | NUR ---
EOSS;PT SLEEPING MUCH OF SHIFT WHEN NOT DISTURBED;AWAKES EASILY WITH VOICE STIMULATION;HEMODYNAMICS STABLE;MONITOR INDICATES NSR;DENIES PAIN/DISTRESS;HOURLY ROUNDING;ALL NEEDS MET;CON'T POC
[2018-12-16] MEDS ORDERED: ATORVASTATIN 20 MG TAB PO SCH (21:00)
[2018-12-17] VITALS (11 sets, daily range): BP systolic 145–169; BP diastolic 79–98; PULSE 80–114; RESP 18–22
[2018-12-17] MEDS ORDERED: hydrALAzine 20 MG INJ IV PRN (00:30)
[2018-12-17] MEDS: metroNIDAZOLE 500 MG/NS (PMX) 100 ML IVPB SCH ×2 (05:19→15:17)
[2018-12-17] MEDS: CEFTRIAXONE 1 GM/50 ML (PMX) 50 ML IVPB SCH (06:36)
[2018-12-17] MEDS: MULTIVITAMINS THERAPEUTIC TAB PO SCH (08:25)
[2018-12-17] MEDS: ASPIRIN (EC) 81 MG TAB PO SCH (08:25)
[2018-12-17] MEDS: FAMOTIDINE 20 MG TAB PO SCH (08:25)
[2018-12-17] MEDS: THIAMINE 100 MG TAB PO SCH (08:25)
[2018-12-17] MEDS: FOLIC ACID 1 MG TAB PO SCH (08:25)
[2018-12-17] MEDS: POTASSIUM CHLORIDE (SR) 20 MEQ TAB PO SCH (08:26)
[2018-12-17] MEDS: DOCUSATE SODIUM 100 MG CAP PO SCH (08:26)
--- NOTE | 2018-12-17 08:48 | RADRPT ---
Echocardiogram Report Patient Name: LISET JACOBS M Gender: Female Date: 1965 Study Date: 16-Dec-2018 Kier Pleater: Ermias Terrell [facility] Location: [address] Ref. Physician: DELMAR HANNA Quality: Good Procedures: Transthoracic echocardiogram with complete 2D, M-Mode, and doppler examination. Indications: Elevated Troponin. 2D/M Mode Doppler Measurement Value Normal Ranges Measurement Value Normal Ranges LVIDd 2D 3.8 3.5 - 5.6 cm BRUCE VTI 1.8 cm2 LVIDs 2D 2.4 2.1 - 4.1 cm AV Mean Jose 2.2 m/sec LVPWd 2D 1.5 0.6 - 1.1 cm AV Mean PG 27.0 mmHg IVSd 2D 1.6 0.6 - 1.1 cm AV VTI 70.1 cm AoR Diam 2D 3.2 2.0 - 3.7 cm LVOT Mean Jose 1.1 m/sec LA/Ao 2D 1 0 - 1 LVOT Mean PG 7.0 mmHg LA Dimen 2D 3.7 2.3 - 4.0 cm LVOT Peak Jose 1.9 m/sec LVOT Diam 2.0 cm LVOT Peak PG 15.0 mmHg MV E Peak Jose 1.0 m/sec MV A Peak Jose 1.4 m/sec MV E/A 0.7 MV Decel Time 120 msec Lat E` Jose 0.1 m/sec Lateral E/E` 13.0 Med E` Jose 0.1 m/sec MV E/A 0.7 TR Peak Jose 3.0 m/sec TR Peak PG 35.0 mmHg RVSP 38.0 mmHg Findings Left Ventricle: Normal left ventricular systolic function. Normal left ventricular cavity size. Moderate concentric left ventricular hypertrophy. Ejection fraction is visually estimated at 65 %. Tissue Doppler/Mitral Doppler indices are consistent with impaired relaxation (Stage I diastolic dysfunction). Right Ventricle: Normal right ventricular size. Normal right ventricular systolic function. Left Atrium: The left atrium is normal in size. Right Atrium: The right atrium is normal in size. Mitral Valve: Mild mitral leaflet calcification. Mild mitral annular calcification. Mild mitral valve regurgitation. Aortic Valve: Mild aortic stenosis. Aortic valve Max velocity 3.80 m/sec. Max PG 58.00 mmHg. Mean PG 27.00 mmHg. Aortic valve area 1.81 cm2. Aortic cusps appear mildly calcified. Tricuspid Valve: Normal appearance of the tricuspid valve. Estimated peak PA systolic pressure 38 mmHg. There is mild tricuspid regurgitation. Pulmonic Valve: Pulmonic valve not well visualized. There is trace pulmonic regurgitation. Pericardium: Normal pericardium with no significant pericardial effusion. Aorta: Normal aortic root. IVC: Normal size and normal respiratory collapse consistent with normal right atrial pressure. Conclusions Normal left ventricular systolic function. Normal left ventricular cavity size. Moderate concentric left ventricular hypertrophy. Ejection fraction is visually estimated at 65 %. Tissue Doppler/Mitral Doppler indices are consistent with impaired relaxation (Stage I diastolic dysfunction). Mild aortic stenosis. Aortic valve Max velocity 3.80 m/sec. Max PG 58.00 mmHg. Mean PG 27.00 mmHg. Aortic valve area 1.81 cm2. Aortic cusps appear mildly calcified. Electronically Signed By: Ryley Barragan 17-Dec-2018 08:47:40 -0800 Patient Name: JACOBS, Angel HUTCHINS Study Date: 16-Dec-2018 [id number]
--- NOTE | 2018-12-17 09:24 | CONS ---
Assessment/Plan Cardiology NYHA: I Heart Failure Type: Acute Heart Failure Type: Diastolic Assessment/Plan Hospital Course (Demo Recall) very mild chf now euvolemic preserved EF hypokalemia - being replaced Consultation Date/Type/Reason Admit Date/Time Dec 15, 2018 at 09:01 Initial Consult Date Type of Consult Cardiology Date/Time of Note DATE: 12/17/18 TIME: 09:22 24 HR Interval Summary Free Text/Dictation feels well eager to go home Constitutional: improved Exam/Review of Systems Vital Signs Vitals Vital Signs Date Temp Pulse Resp B/P (MAP) Pulse Ox O2 O2 Flow FiO2 Time Delivery Rate 12/17/18 98.4 88 19 159/79 94 07:20 (105) 12/16/18 21 20:20 12/16/18 Nasal 2.0 19:27 Cannula Intake and Output 12/16/18 12/16/18 12/17/18 1515:00 23:00 07:00 IntakeIntake Total 370 ml 1960 ml 300 ml OutputOutput Total 450 ml BalanceBalance 370 ml 1510 ml 300 ml Exam Constitutional: alert, oriented Respiratory: clear to auscultation Cardiovascular: regular rate and rhythm Gastrointestinal: soft Extremities: No edema Labs Result Diagram: 12/17/18 0527 12/16/18 0511 Results 24hrs Laboratory Tests Test 12/17/18 05:27 White Blood Count 6.9 Red Blood Count 3.96 L Hemoglobin 9.6 L Hematocrit 31.9 L Mean Corpuscular Volume 80.6 L Mean Corpuscular Hemoglobin 24.2 L Mean Corpuscular Hemoglobin Concent 30.1 L Red Cell Distribution Width 17.0 H Platelet Count 76 #L Mean Platelet Volume 12.0 H Immature Granulocytes % 0.400 Neutrophils % 64.6 Lymphocytes % 19.9 Monocytes % 12.2 H Eosinophils % 2.5 Basophils % 0.4 Nucleated Red Blood Cells % 0.0 Immature Granulocytes # 0.030 Neutrophils # 4.4 Lymphocytes # 1.4 Monocytes # 0.8 Eosinophils # 0.2 Basophils # 0.0 Nucleated Red Blood Cells # 0.0 Medications Medications Current Medications Aspirin (Halfprin) 81 mg DAILY PO Last administered on 12/17/18at 08:25; Admin Dose 81 MG; Start 12/16/18 at 09:00 Docusate Sodium (Colace) 100 mg BID PO Last administered on 12/17/18 08:26; Admin Dose 100 MG; Start 12/15/18 at 21:00 Famotidine (Pepcid) 20 mg BID PO Last administered on 12/17/18 08:25; Admin Dose 20 MG; Start 12/15/18 at 21:00 Multivitamins Therapeutic (Theragran) 1 tab DAILY PO Last administered on 12/17/18 08:25; Admin Dose 1 TAB; Start 12/15/18 at 17:00 Thiamine HCl (Vitamin B1) 100 mg DAILY PO Last administered on 12/17/18 08:25; Admin Dose 100 MG; Start 12/15/18 at 17:00 Folic Acid (Folic Acid) 1 mg DAILY PO Last administered on 12/17/18 08:25; Admin Dose 1 MG; Start 12/15/18 at 17:00 Potassium Chloride (Klor-Con 20) 20 meq DAILY PO Last administered on 12/17/18 08:26; Admin Dose 20 MEQ; Start 12/16/18 at 09:00; Stop 12/18/18 at 09:01 Acetaminophen (Tylenol Tab) 650 mg Q6H PRN PO MILD PAIN(1-3)OR ELEVATED TEMP Last administered on 12/16/18 08:28; Admin Dose 650 MG; Start 12/15/18 at 22:00 Atorvastatin Calcium (Lipitor) 20 mg HS PO Last administered on 12/16/18 20:16; Admin Dose 20 MG; Start 12/16/18 at 21:00 Ceftriaxone Sodium 50 ml @ 100 mls/hr Q24H IVPB Last administered on 12/17/18 06:36; Admin Dose 100 MLS/HR; Start 12/16/18 at 07:30 Metronidazole 100 ml @ 100 mls/hr Q8 IVPB Last administered on 12/17/18 05:19; Admin Dose 100 MLS/HR; Start 12/16/18 at 10:00 Hydralazine HCl (Apresoline) 10 mg Q4H PRN IV SBP> 170 Last administered on 12/17/18 00:13; Admin Dose 10 MG; Start 12/17/18 at 00:30 [employer]FREY CLEANING MD Dec 17, 2018 09:24
[2018-12-17] MEDS ORDERED: MAGNESIUM SULFATE 2 GM/50 ML 50 ML IVPB ONE (10:30)
[2018-12-17] MEDS: POTASSIUM CHLORIDE 20 MEQ POWDER FOR ORAL SOLN PO SCH ×2 (11:22→12:47)
[2018-12-17] MEDS: POTASSIUM CHLORIDE 100 ML IVPB SCH ×2 (11:27→16:31)
[2018-12-17] MEDS ORDERED: AMOX500C2 PO (16:36)
[2018-12-17] MEDS ORDERED: SULF1TAB31 PO (16:36)
--- NOTE | 2018-12-17 16:37 | PDOCDIS ---
Discharge Instructions DIAGNOSIS Discharge Diagnosis Urinary tract infection CONDITION [id number] Patient Condition: [id number] Good HOME CARE INSTRUCTIONS: [id number] Diet Instructions: [id number] Regular ACTIVITY: [id number] Activity Restrictions: [id number] No Restrictions FOLLOW UP/APPOINTMENTS Follow-up Plan 1. Continue all medicines as prescribed. 2. Finish five more days of oral bactrim and amoxicillin. 3. See your primary care doctor in 1-2 weeks. BOSSMAN RIVERA MD Dec 17, 2018 16:37
--- NOTE | 2018-12-17 17:16 | DS ---
Date/Time of Note Date/Time of Note DATE: 12/17/18 TIME: 17:13 Discharge Summary Admission/Discharge Info Admit Date/Time Dec 15, 2018 at 09:01 Discharge Date/Time Dec 17, 2018 Discharge Diagnosis Urinary tract infection Patient Condition: Good Consults Dr. Pulido, cardiology Hx of Present Illness Ms. Inge Oconnor is a 53-year-old female who was reportedly brought in by EMS from home because of hand pain, anxiety and fever. The patient is an alcoholic and drinks alcohol daily. At this time, she has been given anti-anxiety medications and is an extremely poor historian. I am unable to really piece together any significant history. However, she was found to be septic on arrival and hypokalemic, and her troponin level has come back elevated. She has been admitted for further workup and management. Hospital Course She was started on IV ceftriaxone with good recovery of mental status. Dr. Pulido was consulted for her elevated trops; not likely to be an NSTEMI; no further workup needed. Trops downtrended normally. Urine culture grew E Coli and group D strep (which may be strep bovis, an uncommon urinary pathogen). She will be discharged on bactrim for the E Coli and amoxicillin for the strep. Home Meds Active Scripts Amoxicillin* (Amoxicillin*) 500 Mg Cap, 875 MG PO Q12, #10 CAP Prov:BOSSMAN RIVERA MD 12/17/18 Sulfamethoxazole/Trimethoprim* (Bactrim Ds* Tablet) 1 Each Tablet, 1 TAB PO BID, #10 TAB Prov:BOSSMAN RIVERA MD 12/17/18 Reported Medications Lisinopril* (Lisinopril*) 10 Mg Tablet, 10 MG PO DAILY, #30 TAB 12/15/18 Follow-up Plan 1. Continue all medicines as prescribed. 2. Finish five more days of oral bactrim and amoxicillin. 3. See your primary care doctor in 1-2 weeks. Primary Care Provider Care Physician No Primary Time spent on discharge: > 30 minutes Pending Labs Laboratory Tests Test 12/17/18 05:27 12/17/18 14:45 White Blood Count 6.9 10^3/ul (4.8-10.8) Red Blood Count 3.96 10^6/ul (4.20-5.40) Hemoglobin 9.6 g/dl (12.0-16.0) Hematocrit 31.9 % (37.0-47.0) Mean Corpuscular Volume 80.6 fl (82.0-101.0) Mean Corpuscular Hemoglobin 24.2 pg (29.0-33.0) Mean Corpuscular 30.1 g/dl (32.0-37.0) Hemoglobin Concent Red Cell Distribution Width 17.0 % (11.5-14.5) Platelet Count 76 10^3/UL (140-415) Mean Platelet Volume 12.0 fl (7.4-10.4) Immature Granulocytes % 0.400 % (0.001-0.429) Neutrophils % 64.6 % (39.0-77.0) Lymphocytes % 19.9 % (15.0-51.0) Monocytes % 12.2 % (0.0-11.0) Eosinophils % 2.5 % (0.0-7.0) Basophils % 0.4 % (0.0-2.0) Nucleated Red Blood Cells % 0.0 /100WBC (0.0-0.0) Immature Granulocytes # 0.030 10^3/ul (0.0-0.031) Neutrophils # 4.4 10^3/ul (1.6-7.5) Lymphocytes # 1.4 10^3/ul (0.8-2.9) Monocytes # 0.8 10^3/ul (0.3-0.9) Eosinophils # 0.2 10^3/ul (0.0-0.5) Basophils # 0.0 10^3/ul (0.0-0.1) Nucleated Red Blood Cells # 0.0 10^3/ul (0.0-0.0) Sodium Level 138 mmol/L (135-144) 138 mmol/L (135-144) Potassium Level 2.5 mmol/L (3.5-5.1) 4.3 mmol/L (3.5-5.1) Chloride Level 98 mmol/L (97-110) 104 mmol/L (97-110) Carbon Dioxide Level 28 mmol/L (21-31) 26 mmol/L (21-31) Anion Gap 12 (5-13) 8 (5-13) Blood Urea Nitrogen 15 mg/dl (7-20) 14 mg/dl (7-20) Creatinine 1.13 mg/dl (0.44-1.00) 1.05 mg/dl (0.44-1.00) Est Glomerular Filtrat 51 mL/min (>60) 55 mL/min (>60) Rate mL/min Glucose Level 92 mg/dl (70-220) 111 mg/dl (70-220) Calcium Level 8.2 mg/dl (8.4-10.2) 8.3 mg/dl (8.4-10.2) Phosphorus Level 3.5 mg/dl (2.5-4.9) Magnesium Level 1.8 mg/dl (1.7-2.5) Total Bilirubin 0.8 mg/dl (0.2-1.3) Direct Bilirubin 0.00 mg/dl (0.00-0.20) Indirect Bilirubin 0.8 mg/dl (0-1.1) Aspartate Amino 42 IU/L (15-46) Transf (AST/SGOT) Alanine 46 IU/L (13-69) Aminotransferase (ALT/SGPT) Alkaline Phosphatase 65 IU/L (42-121) Total Protein 6.8 g/dl (6.1-8.1) Albumin 2.7 g/dl (3.3-4.9) Globulin 4.10 g/dl (1.3-3.2) Albumin/Globulin Ratio 0.65 BOSSMAN RIVERA MD Dec 17, 2018 17:16
== END 2018-12-17 19:40 | disposition home or self-care (01) | DRG 871 ==
LOC: E/R 07:53 → 6WM 09:01
PROVIDERS: ADMIT Family Medicine; ATTEND Internal Medicine
DX: A41.9 Sepsis, unspecified organism (principal); I50.41 Acute combined systolic (congestive) and diastolic (congestive) heart failure; N39.0 Urinary tract infection, site not specified; F10.230 Alcohol dependence with withdrawal, uncomplicated; K76.6 Portal hypertension; I13.0 Hypertensive heart and chronic kidney disease with heart failure and stage 1 through stage 4 chronic kidney disease, or unspecified chronic kidney disease; D69.59 Other secondary thrombocytopenia; E87.6 Hypokalemia; D50.9 Iron deficiency anemia, unspecified; F17.210 Nicotine dependence, cigarettes, uncomplicated; I11.0 Hypertensive heart disease with heart failure; K70.30 Alcoholic cirrhosis of liver without ascites; B96.20 Unspecified Escherichia coli [E. coli] as the cause of diseases classified elsewhere; B95.2 Enterococcus as the cause of diseases classified elsewhere; F41.9 Anxiety disorder, unspecified; N18.9 Chronic kidney disease, unspecified; Y90.0 Blood alcohol level of less than 20 mg/100 ml; Z79.82 Long term (current) use of aspirin
CPT/HCPCS: 36415; 71045; 74176; 80048; 80053; 80307; 81001; 82550; 82553; 83540; 83605; 83690; 83735; 83880; 84100; 84484; 85025; 85610; 85651; 85730; 86140; 87040; 87086; 87400; 90686; 93005; 93306; 94660; 96365; 96375; J0360; J0696; J1940; J3475; J3480; J7030; J7050